=== PATIENT | female | born 1995 | race Caucasian/White ===

== ENCOUNTER → 2022-01-08 08:45 | Outpatient (CLI) | payer BC, SELFPAY ==
--- NOTE | 2022-01-08 08:51 | US_ITS ---
FINAL REPORT CLINICAL HISTORY: ELEVATED LFT S FINDINGS: Sonographic images of the right upper quadrant were obtained. The pancreas is partially obscured. There is fatty infiltration of the liver. The gallbladder is partially collapsed as a nonspecific finding. There is no evidence of biliary ductal dilatation.The common duct measures 3 mm. Limited images of the right kidney are unremarkable. IMPRESSION: Fatty liver. Reviewed, Interpreted and Dictated by Michael Schneider III, MD Transcribed by Hanna Payton Authenticated and [facility]
--- NOTE | 2022-01-08 08:51 | US_ITS ---
FINAL REPORT CLINICAL HISTORY: MENORRHAGIA FINDINGS: Transvaginal sonographic images of the pelvis were obtained. The uterus measures 7.9 x 3.4 x 4.8 cm. The endometrium measures 8 mm. No adnexal mass is identified. The right ovary measures 3.1 x 2.0 x 1.9 cm. The left ovary measures 3.0 x 2.0 x 2.2 cm. Multiple follicles are seen in both ovaries, may represent polycystic ovarian syndrome. IMPRESSION: Bilateral ovarian follicles, may represent polycystic ovarian syndrome. Reviewed, Interpreted and Dictated by Michael Schneider III, MD Transcribed by Hanna Payton Authenticated and [facility]
== END ==
PROVIDERS: PCP Nurse Practitioner Family; Visit Provider Nurse Practitioner Family
DX: N92.0 Excessive and frequent menstruation with regular cycle (principal); R79.89 Other specified abnormal findings of blood chemistry
CPT/HCPCS: 76705; 76830

== ENCOUNTER 2023-09-19 13:04 | Emergency (ER) | payer BC, SELFPAY ==
--- NOTE | 2023-09-19 13:37 | PC.NURSE ---
OB NURSE AT BESIDE CHECKING HEART TONES
[2023-09-19 13:40] VITALS: BP 132/94; PULSE 113; RESP 20; TEMP 36.6; O2SAT 98; BMI 37.5
--- NOTE | 2023-09-19 14:06 | ED_ITS ---
Discharge Plan Disposition Patient Disposition: Home, Self-Care Condition: Good Prescriptions Prescriptions: New amoxicillin 875 mg tablet 875 mg PO BID Qty: 20 0RF prednisone 20 mg tablet 20 mg PO BID Qty: 10 0RF Referrals Follow up/Referrals: Lc Pastrana MD [Primary Care Provider] - See instructions Activity Restrictions/Add. Instructions Additional Instructions/Restrictions: Return to [facility] if worsening symptoms Clinical Impressions Clinical Impression: Sinusitis, Acute dehydration, Instructions Patient Instructions: DI for Sinusitis Discharge ED Provider: Delores Cueto [facility] HPI General Stated complaint: Pain L baptism through L jaw, Bottom BP number low Mode of Arrival: Ambulatory Source of Information: Patient Limitations: No Limitations Time Seen by Provider: 09/19/23 13:50 Description of Symptoms (Recalled from Triage Doc. by RN): PATIENT C/O SEVERE PAIN TO LEFT SIDE OF HEAD THAT RADIATES TO JAW THAT STARTED LAST NIGHT. SHE ALSO STATES HER DIASTOLIC BP HAS BEEN ELEVATED HEENT Symptoms (Recalled from RN notes): Yes Resp Symptoms (Recalled from RN notes): No Skin Symptoms (Recalled from RN notes): No MS Symptoms (Recalled from RN notes): No Functional Status (Recalled from RN notes): WNL History of Present Illness Provider Complaint: Patient had pain in left baptism last night. Got worse, woke her up from sleep around 2 am. Took Tylenol without relief. Pain now radiates into jaw. No rash. Feels like her teeth are sore. Has not had much to drink today. Her blood pressure is high. She is 20 weeks . Has not yet felt the baby move. Onset (ago): day(s) (1) Location: head Relieving factors: none Exacerbating factors: none Associated symptoms: denies other symptoms Treatments prior to arrival: other (Tylenol) Related Data Previous Rx's Medication Instructions Recorded amoxicillin 875 mg tablet 875 mg PO BID #20 tabs 09/19/23 prednisone 20 mg tablet 20 mg PO BID #10 tabs 09/19/23 Allergies Allergy/AdvReac Type Severity Reaction Status Date / Time No Known Allergies Allergy Verified 09/09/18 18:17 Worker's Comp Is this a Worker's Comp case?: No [facility] Disclaimer: The information contained in this section may have been updated after the patient was seen, as this information can be updated by other users. Social History Smoking Status: Never smoker alcohol intake: never current occupational status: other Travel in the last 8 weeks: None ROS Obtained: Yes All systems reviewed & no additional complaints except as documented Constitutional Constitutional: Reports headache(s) ENT Ears, Nose, Mouth, and Throat: Reports headache(s) Neurologic Neurologic: Reports headache(s) Physical Exam General General appearance: alert and in no apparent distress Head Head exam: atraumatic, normocephalic and normal inspection Eye Eye exam: Present normal appearance, PERRL and EOMI ENT ENT exam: Present normal exam, normal oropharynx, mucous membranes moist, TM's normal bilaterally and normal external ear exam Expanded ENT Exam Nose exam: Present sinus tenderness Nasal speculum exam: Bilateral: other (nasal congestion) Neck Neck exam: Present normal inspection, full ROM and trachea midline; Absent meningismus or lymphadenopathy Chest Chest inspection: Present normal inspection and symmetric chest wall rise; Absent tenderness Respiratory Respiratory exam: Present normal lung sounds bilaterally; Absent respiratory distress Cardiovascular Cardiovascular exam: Present regular rate and normal rhythm; Absent JVD Abdominal Exam Abdominal exam: Present soft and normal bowel sounds; Absent distention, tenderness or guarding Extremities Exam Extremities exam: Present normal inspection, full ROM and normal capillary refill; Absent calf tenderness Back Exam Back exam: Present normal inspection; Absent tenderness Neurological Exam Neurological exam: Present alert and oriented X3 Psychiatric Psychiatric exam: Present normal affect and normal mood Skin Skin exam: Present warm, dry, intact and normal color Lymphatic Lymphatic Findings: no adenopathy Medical Decision Making Tin Inquiry Pt receiving controlled substance: No Vital Signs: 09/19/23 13:40 Temperature 97.9 F Temperature Source Oral Pulse Rate [Left Brachial] 113 H Respiratory Rate 20 Blood Pressure [Left Arm] 132/94 H Blood Pressure Mean [Left Arm] 106 Blood Pressure Source [Left Arm] Automatic Cuff Blood Pressure Position [Left Arm] Sitting 02 Sat by Pulse Oximetry 98 Oxygen Delivery Method Room Air Lab Data Lab results reviewed: Yes I reviewed the patient's lab results. Physician Consults Physician Consulted: OB RN came down and checked FHTs Reevaluation(s) Time: 15:47 Reevaluation #1: Fluids almost done. Feeling much better.
[2023-09-19 14:14] LABS: Apearance,Urine Cloudy (Clear); Color,Urine Orange (Yellow); Glucose,Urine (UA) Negative (Negative); PH,Urine 6.5 (5.0-8.5); Protein,Urine Negative (Negative); Specific Gravity, Urine 1.025 (1.005-1.030)
[2023-09-19 14:15] LABS: Bilirubin,Urine 1+ (Negative); Blood, Urine Trace (Negative); Ketones,Urine 15 (Negative); UTC Leukocyte Esterase,Urine Negative (Negative); UTC Nitrate,Urine Negative (Negative); Urobilinogen,Urine 0.2 EU/dl (0.2)
[2023-09-19] MEDS: 0.9 % SODIUM CHLORIDE 1000ML 1,000 ML 999 ML IV (14:30)
--- NOTE | 2023-09-19 15:16 | PC.NURSE ---
CHECKED ON PATIENT. PATIENT STATES SHE IS OK, REQUESTING A SNACK. PATIENT GIVEN JUAN A CRACKERS AND WATER
[2023-09-19 15:51] VITALS: BP 132/94; PULSE 113; RESP 20; TEMP 36.6; O2SAT 98
== END 2023-09-19 16:00 | disposition home or self-care (01) ==
PROVIDERS: Emergency Provider Physician Assistant; PCP Family Medicine
DX: O26.892 Other specified pregnancy related conditions, second trimester (principal); E86.0 Dehydration; J01.90 Acute sinusitis, unspecified; R51.9 Headache, unspecified; R68.84 Jaw pain; R09.81 Nasal congestion; Z3A.20 20 weeks gestation of pregnancy
CPT/HCPCS: 81003; 96360; 99204; 99212; G0463

== ENCOUNTER 2023-11-14 11:55 | Emergency (ER) | payer BC, SELFPAY ==
[2023-11-14 12:00] VITALS: BP 139/93; PULSE 116; RESP 18; TEMP 36.7; O2SAT 99; BMI 38.0
--- NOTE | 2023-11-14 12:11 | ED_ITS ---
Discharge Plan Disposition Patient Disposition: Home, Self-Care Condition: Good Prescriptions Prescriptions: New ondansetron 8 mg tablet,disintegrating 8 mg PO TID PRN (Reason: Nausea) Qty: 30 0RF No Action levothyroxine 75 mcg tablet 75 mcg PO DAILY Patient Comments: TAKE 1 TABLET BY MOUTH ONCE DAILY Referrals Follow up/Referrals: Lc Pastrana MD [Primary Care Provider] - See instructions Clinical Impressions Clinical Impression: COVID-19, 28 weeks gestation of Instructions Patient Instructions: DI for COVID-19 (Suspected or Confirmed ) Discharge ED Provider: Delores Cueto [facility] [place] HPI General Stated complaint: body aches, nausea, headache, dehydration Time Seen by Provider: 11/14/23 12:17 History of Present Illness Provider Complaint: Patient woke up this am with body aches, headache, chills. She has nausea. She has not had good oral intake today. No edema. She is 28 weeks . Onset (ago): day(s) (1) Relieving factors: none Exacerbating factors: none Associated symptoms: fever/chills, headaches and nausea/vomiting Treatments prior to arrival: none Related Data Home Medications Medication Instructions Recorded Confirmed levothyroxine 75 mcg tablet 75 mcg PO DAILY 11/14/23 11/14/23 Previous Rx's Medication Instructions Recorded ondansetron 8 mg disintegrating 8 mg PO TID PRN Nausea #30 tabs 11/14/23 tablet Allergies Allergy/AdvReac Type Severity Reaction Status Date / Time No Known Allergies Allergy Verified 11/14/23 12:16 [facility] Disclaimer: The information contained in this section may have been updated after the patient was seen, as this information can be updated by other users. Social History Smoking Status: Never smoker alcohol intake: never current occupational status: other Travel in the last 8 weeks: None ROS Obtained: Yes All systems reviewed & no additional complaints except as documented Constitutional Constitutional: Reports body ache, Reports chills, Reports headache(s) and Reports poor appetite ENT Ears, Nose, Mouth, and Throat: Reports headache(s) Gastrointestinal Gastrointestingal: Reports nausea Musculoskeletal Musculoskeletal: Reports arthralgias Neurologic Neurologic: Reports headache(s) Physical Exam General General appearance: alert and in no apparent distress Head Head exam: atraumatic, normocephalic and normal inspection Eye Eye exam: Present normal appearance, PERRL and EOMI ENT ENT exam: Present normal exam, normal oropharynx, mucous membranes moist, TM's normal bilaterally and normal external ear exam Expanded ENT Exam Nose exam: Present sinus tenderness Nasal speculum exam: Bilateral: other (nasal congestion) Neck Neck exam: Present normal inspection, full ROM and trachea midline; Absent meningismus or lymphadenopathy Chest Chest inspection: Present normal inspection and symmetric chest wall rise; Absent tenderness Respiratory Respiratory exam: Present normal lung sounds bilaterally; Absent respiratory distress Cardiovascular Cardiovascular exam: Present regular rate and normal rhythm; Absent JVD Abdominal Exam Abdominal exam: Present soft and normal bowel sounds; Absent distention, tenderness or guarding Extremities Exam Extremities exam: Present normal inspection, full ROM and normal capillary refill; Absent calf tenderness Back Exam Back exam: Present normal inspection; Absent tenderness Neurological Exam Neurological exam: Present alert and oriented X3 Psychiatric Psychiatric exam: Present normal affect and normal mood Skin Skin exam: Present warm, dry, intact and normal color Lymphatic Lymphatic Findings: no adenopathy Medical Decision Making Tin Inquiry Pt receiving controlled substance: No Lab Data Lab results reviewed: Yes I reviewed the patient's lab results.
[2023-11-14 12:24] LABS: Influenza A, PCR Not Detected (NotDetected); Influenza B, PCR Not Detected (NotDetected)
[2023-11-14 12:29] LABS: UTC Strep Screen (Rapid) Negative (Negative)
[2023-11-14] MEDS: 0.9 % SODIUM CHLORIDE 1000ML 500 ML 999 ML IV (12:36)
[2023-11-14 13:02] LABS: Coronavirus 19, PCR Detected (NotDetected)
[2023-11-14 14:10] LABS: Apearance,Urine Cloudy (Clear); Color,Urine Dark Yellow (Yellow)
[2023-11-14 14:11] LABS: Bilirubin,Urine Negative (Negative); Blood, Urine Trace (Negative); Glucose,Urine (UA) M (Negative); Ketones,Urine 1+ (Negative); Protein,Urine Negative (Negative); Specific Gravity, Urine 1.015 (1.005-1.030); UTC Leukocyte Esterase,Urine Negative (Negative); UTC Nitrate,Urine Negative (Negative); Urobilinogen,Urine 0.2 EU/dl (0.2)
[2023-11-14 14:17] VITALS: BP 139/93; PULSE 116; RESP 18; TEMP 36.7; O2SAT 99
== END 2023-11-14 14:17 | disposition home or self-care (01) ==
PROVIDERS: Emergency Provider Physician Assistant; PCP Family Medicine
DX: O98.513 Other viral diseases complicating pregnancy, third trimester (principal); U07.1 COVID-19; Z3A.28 28 weeks gestation of pregnancy; R51.9 Headache, unspecified; R68.83 Chills (without fever); M79.18 Myalgia, other site; R11.0 Nausea
CPT/HCPCS: 81003; 87636; 87880; 99212; 99214; G0463

== ENCOUNTER 2024-05-17 08:29 | Outpatient (CLI) | payer BC, SELFPAY ==
--- NOTE | 2024-05-17 08:36 | US_ITS ---
FINAL REPORT TECHNIQUE: Multiple transverse and longitudinal images CLINICAL HISTORY: ELEVATED LIVER ENZYMES COMPARISON: None FINDINGS: The gallbladder shows no wall thickening, distention or stone disease. No biliary ductal dilatation is appreciated. No fluid collections are seen. There is mild fatty infiltration of the liver. Limited portions of the right kidney are unremarkable. IMPRESSION: No evidence of cholelithiasis or biliary obstruction. Mild fatty infiltration of the liver. Reviewed, Interpreted and Dictated by Eulalia Landeros MD Transcribed by Jillian De La Vega Authenticated and [facility]
== END 2024-05-17 23:59 | disposition home or self-care (01) ==
LOC: RAD 08:31
PROVIDERS: PCP Family Medicine; Visit Provider Internal Medicine Adolescent Medicine
DX: R74.8 Abnormal levels of other serum enzymes (principal)
CPT/HCPCS: 76705

== ENCOUNTER 2025-02-08 20:59 | Emergency (ER) | payer BC, SELFPAY ==
--- NOTE | 2025-02-08 21:10 | ED_ITS ---
Discharge Plan Disposition Patient Disposition: Home, Self-Care Condition: Good Prescriptions Prescriptions: No Action levothyroxine 75 mcg tablet 75 mcg PO DAILY Patient Comments: TAKE 1 TABLET BY MOUTH ONCE DAILY ondansetron 8 mg tablet,disintegrating 8 mg PO TID PRN (Reason: Nausea) Qty: 30 0RF Referrals Follow up/Referrals: Daniel Chowdhury MD [Primary Care Provider, Internal Medicine] - See instructions Activity Restrictions/Add. Instructions Additional Instructions/Restrictions: Follow-up with your primary care provider. Return to the emergency department for any acute or worsening symptoms or return of your symptoms. Clinical Impressions Clinical Impression: Slurred speech Print Language Print Language: Faroese Discharge ED Provider: Kristal Joe General Adult HPI General Chief complaint: Dizziness Stated complaint: slurred speech,lightheaded,dizziness,loss balance Time Seen by Provider: 02/08/25 21:09 History of Present Illness HPI narrative: Patient is an otherwise healthy 29-year-old female who presented to the emergency department with multiple complaints. Per , patient was feeding the baby around 8 PM when he noticed that her speech sounded abnormal. She said that she felt like she was seeing things. Patient denies any other vision changes. Patient denies any chest pain shortness of breath abdominal pain nausea vomiting diarrhea. Patient states that she has not been sick recently. Patient states that she has been on medication for IVF but denies any other medications. Patient has not had a headache. Patient and her at bedside states that her symptoms have since resolved. Related Data Home Medications ?Medication ?Instructions ?Recorded ?Confirmed levothyroxine 75 mcg tablet 75 mcg PO DAILY 11/14/23 0 11/14/23 Previous Rx's ?Medication ?Instructions ?Recorded ondansetron 8 mg disintegrating 8 mg PO TID PRN Nausea #30 tabs 11/14/23 tablet Allergies Allergy/AdvReac Type Severity Reaction Status Date / Time No Known Allergies Allergy Verified 11/14/23 12:16 [facility] Disclaimer: The information contained in this section may have been updated after the patient was seen, as this information can be updated by other users. Social History Smoking Status: Never smoker alcohol intake: never current occupational status: other Travel in the last 8 weeks?: None Have you lived/traveled outside US in past 30 days?: No Contact w/someone who lives/traveled outside US past 30 days?: No Exposure to someone with infectious disease in past 14 days?: No Do you have a fever (greater than 100.4 F or 38 C)?: No Have you tested positive for COVID-19?: No Exposed to someone with COVID-19 in past 14 days?: No Do you have a sore throat?: No Do you have a cough?: No Do you have any weakness?: No Do you have any diarrhea?: No Are you experiencing any unusual bleeding?: No Do you have any muscle aches/pain?: No Do you have any abdominal pain?: No Are you experiencing loss of taste or smell?: No ROS Obtained: Yes All systems reviewed & no additional complaints except as documented and Yes Systems reviewed as appropriate & no additional complaints except as documented Physical Exam General General appearance: alert and in no apparent distress Head Head exam: atraumatic, normocephalic and normal inspection Eye Eye exam: Present normal appearance, PERRL and EOMI; Absent scleral icterus ENT ENT exam: Present normal exam and normal external ear exam Neck Neck exam: Present normal inspection and full ROM Chest Chest inspection: Present normal inspection and symmetric chest wall rise Respiratory Respiratory exam: Present normal lung sounds bilaterally; Absent respiratory distress or wheezes Cardiovascular Cardiovascular exam: Present regular rate, normal rhythm and normal heart sounds Abdominal Exam Abdominal exam: Present soft and distention; Absent tenderness, guarding or rebound Extremities Exam Extremities exam: Present normal inspection and full ROM Back Exam Back exam: Present normal inspection and full ROM Neurological Exam Neurological exam: Present alert, oriented X3, CN II-XII intact, normal gait and motor sensory deficit Psychiatric Psychiatric exam: Present normal affect and normal mood Skin Skin exam: Present warm and dry Medical Decision Making Medical Records Medical records reviewed: Yes I reviewed the patient's medical records. Screening: Per USPSTF and CDC recommendations, given the prevalence of disease in our region, it is our hospital?s policy to screen for HIV and viral Hepatitis for all patients aged 18 and over and those with ongoing risk factors. Tin Inquiry Pt receiving controlled substance: No Vital Signs: 02/08/25 21:12 02/08/25 21:12 02/08/25 21:29 Pulse Rate 79 78 Pulse Rate [Right Radial] 82 Respiratory Rate 20 Blood Pressure 130/95 H 129/90 Blood Pressure [Right Arm] 130/95 H Blood Pressure Mean Blood Pressure Mean [Right Arm] 106 Blood Pressure Source [Right Arm] Automatic Cuff 02 Sat by Pulse Oximetry 95 99 99 Oxygen Delivery Method Room Air 02/08/25 22:30 Pulse Rate 80 Pulse Rate [Right Radial] Respiratory Rate Blood Pressure 136/86 Blood Pressure [Right Arm] Blood Pressure Mean 97 Blood Pressure Mean [Right Arm] Blood Pressure Source [Right Arm] 02 Sat by Pulse Oximetry 99 Oxygen Delivery Method Lab Data Lab results reviewed: Yes I reviewed the patient's lab results. Lab Results 02/08/25 21:03: Urine Color Yellow, Urine Appearance Clear, Urine pH 7.0, Ur Specific [place] 1.020, Urine Protein Negative, Urine Glucose (UA) Negative, Urine Ketones Negative, Urine Blood Trace-i, Urine Nitrate Negative, Urine Bilirubin Negative, Urine Urobilinogen 1.0, Ur Leukocyte Esterase Negative, Urine RBC Occasional, Urine WBC Occasional, Ur Squamous Epith Cells 5-10, Urine Bacteria Trace, Urine HCG, Qual Negative, Urine Opiates Screen Negative, Urine Methadone Screen Negative, Ur Barbituates Screen Negative, Ur Phencyclidine Scrn Negative, Ur Amphetamines Screen Negative, U Benzodiazepines Scrn Negative, Urine Cocaine Screen Negative, U Marijuana (THC) Screen Negative 02/08/25 21:15: WBC 10.1, RBC 5.06, Hgb 14.1, Hct 39.7, MCV 78.5 L, MCH 27.9, M CHC 35.5 H, RDW 13.4, Plt Count 365, MPV 10.7 H, Neut % (Auto) 52.0, Lymph % (Auto) 36.8, [place] % (Auto) 7.2, Eos % (Auto) 2.9, Baso % (Auto) 0.7, Neut # (Auto) 5.3, Lymph # (Auto) 3.7, [place] # (Auto) 0.7, Eos # (Auto) 0.3, Baso # (Auto) 0.1, Sodium 140, Potassium 4.0, Chloride 104, Carbon Dioxide 26, Anion Gap 14.0, BUN 13, Creatinine 0.60, Estimated Creat Clear 195, Estimated GFR 117, Est GFR ( Amer) 141, Glucose 97, Calcium 9.3, Magnesium 1.8, Total Bilirubin 1.9 H, AST 64 H, ALT 53, Alkaline Phosphatase 98, Troponin I < 0.01, Total Protein 7.6, Albumin 4.4, Globulin 3.2, Albumin/Globulin Ratio 1.4, Serum HCG, Qual Negative, Plasma/Serum Alcohol < 10 02/08/25 21:50: POC Glucose 108 02/08/25 21:15 02/08/25 21:15 Orders (Tests/Meds): ORDERS Category Date Time Status CT head/brain wo con Stat Cat Scan 02/08/25 21:39 Completed CBC w/Auto Diff [Complete Blood Count Auto Diff] Stat Lab 02/08/25 21:15 Completed CMP [Comprehensive Metabolic Panel] Stat Lab 02/08/25 21:15 Completed Drug Screen,Urine Stat Lab 02/08/25 21:03 Completed Ethyl Alcohol Stat Lab 02/08/25 21:15 Completed HCG Qualitative, Serum Stat Lab 02/08/25 21:15 Completed MAG [Magnesium] Stat Lab 02/08/25 21:15 Completed POC Glucose,Bedside Routine Lab 02/08/25 21:50 Completed POC Glucose,Bedside Stat Lab 02/08/25 21:41 Ordered Trop I [Troponin I] Stat Lab 02/08/25 21:15 Completed Troponin I Q3H Lab 02/09/25 00:45 Ordered Troponin I Q3H Lab 02/09/25 03:45 Ordered UA [Urinalysis and Microscopic] Stat Lab 02/08/25 21:03 Completed Urine , HCG Qual. Stat Lab 02/08/25 21:03 Completed Medical Decision Narrative: Patient is a an otherwise healthy 29-year-old female who is on a occasion for IVF but denies any other medications who presents to the emergency department with an episode of slurred speech that resolved prior to arrival. On arrival, patient was hemodynamically stable with unremarkable vital signs. Differential includes but not limited to: hypoglycemia, TIA, cranial hemorrhage versus mass, electrolyte abnormalities, urinary tract infection, amongst others. Patient's labs were reviewed and interpreted by myself: CBC showed no leukocytosis, hemoglobin was stable. CMP was unremarkable. Initial troponin was less than 0.01. test was negative. UA showed no evidence of infection. Urine drug screen was negative. Alcohol level was normal. CT head was reviewed and interpreted by myself and showed no acute pathology. At this time, patient was at her baseline therefore I felt the patient was appropriate for discharge home with plan to follow-up outpatient with her primary care provider. Critical Care Critical Care Time Critical Care Time: No
--- NOTE | 2025-02-08 21:10 | ECG_ITS ---
APPROVED REPORT Exam: Resting ECG HR:82 bpm ECG Measurements Heart Rate 82 AXES WY 171 P 51 QRSd 94 QRS 3 QT 357 T 25 QTc 396 Conclusion SINUS RHYTHM NORMAL ECG UNCONFIRMED REPORT Electronically signed by : LEVON BARNETT, 02/10/2025 00:41:42
--- OUTSIDE RECORDS SUMMARY | 2025-02-08 21:10 | XMS_ITS | Clinical Summary ---
Author Organization [facility] Address [address] [place] [address] Care Team Providers Care Enlisted Advisor Name Role Phone Provider, No Known Primary Care Provider Unavail able Allergies No known active allergies Medications levothyroxine (Synthroid) 75 MCG tablet Take 1 tablet by mouth Daily. 30 tablet 10 07/10/2023 Active labetalol (NORMODYNE) 200 MG tablet Take 1 tablet by mouth Every 8 (Eight) Hours. 90 tablet 01/17/2024 11:20 AM EDT 01/17/2024 Active NIFEdipine CC (ADALAT CC) 30 MG 24 hr tablet Take 1 tablet by mouth 2 (Two) Times a Day. 60 tablet 01/17/2024 11:20 AM EDT 01/17/2024 Active Active Problems Problem Noted Date Diagnosed Date 01/13/2024 Hypothyroidism (acquired) 12/18/2023 Overview (12/18/2023): On Synthroid 75 mcg daily. Gestational hypertension wit hout significant proteinuria in third trimester 12/05/2023 Overview (12/18/2023): 12/15/2023 labetalol 100 mg 3 times daily. Induction of labor scheduled at 37 weeks. Twice weekly monitoring and blood pressure checks. Supervision of normal first , antepartu m 08/04/2023 Oligomenorrhea 09/26/2020 Overview (09/26/2020): Only has 2 periods a year, wants to get Family planning 09/26/2020 Overview (09/26/2020): Options Metformin followed by Clomid Clomid first Annual physical exam 09/26/2020 Pap test, as part of [facility] 09/26/2020 Immunizations Immunization Administration Dates Next Due Tdap 11/10/2023 Family History Medical History Relation Name Comments Breast cancer Maternal Grandfather great grandfather Hypertension Mother Colon cancer Neg Hx Ovarian cancer Neg Hx Uterine cancer Neg Hx Relation Name Status Comments Maternal Grandfather great grandfather Mother Social History Tobacco Use Types Packs/Day Years Used Date Smoking Tobacco: Never Passive Smoke Exposure: Never Smokeless Tobacco: Never Alcohol Use Standard Drinks/Week Comments Not Currently 1 (1 standard drink = 0.6 oz pur e alcohol) occassional [facility] Utilities Answer Date Recorded In the past 12 months has th e electric, gas, oil, or water company threatened to shut off services in your home? No 01/13/2024 AUDIT-C Answer Date Recorded Q1: How often do you have a drink containing alc ohol? Monthly or less 01/13/2024 Q2: How many drinks containi ng alcohol do you have on a typical day when you are drinking? 1 or 2 01/13/2024 Q3: How often do you have si x or more drinks on one occasion? Never 01/13/2024 Overall Financial Resource Strain (CARDIA) Answe r Date Recorded How hard is it for you to pa y for the very basics like food, housing, medical care, and heating? Not hard at all 01/13/2024 [facility] [place] [facility] - Occupational Stress Questionnaire Answer Date Recorded Do you feel stress - tense, restless, nervous, or anxious, or unable to sleep at night because your mind is troubled all the time - these days? Not at all 01/13/2024 Exercise Vital Sign Answer Date Recorde d On average, how many days pe r week do you engage in moderate to strenuous exercise (like a brisk walk)? 2 days 01/13/2024 On average, how many minutes do you engage in exercise at this level? 30 min 01/13/2024 Hunger Vital Sign Answer Date Recorded Within the past 12 months, y ou worried that your food would run out before you got the money to buy more. Never true 08/13/20 24 Within the past 12 months, t he food you bought just didn't last and you didn't have money to get more. Never true 01/13/2024 PRAPARE - Transportation Answer Date Re corded In the past 12 months, has l ack of transportation kept you from medical appointments or from getting medications? No 12/31 In the past 12 months, has l ack of transportation kept you from meetings, work, or from getting things needed for daily living? No 01/13/2024 Baltic Depression Scale Answer Date Recorded Retired Baltic Depression Score 1 02/16/2024 Retired EPD Scale: Thought of Harming Self Unrec ognized value 02/16/2024 Abuse Screen Answer Date Recorded Feels Unsafe at Home or Work/School no 01/13/2024 Feels Threatened by Someone no 12/31 Does Anyone Try to Keep You From Having Contact with Others or Doing Things Outside Your Home? no 01/13/2024 Physical Signs of Abuse Present no 01/13/2024 Housing Stability Answer Date Recorded Current Living Arrangements home 12/31 Potentially Unsafe Housing Conditions none 01/13/2024 Family and Community Support Answer Neo e Recorded If for any reason you need h elp with day-to-day activities such as bathing, preparing meals, shopping, managing finances, etc., do you get the help you need? I don't need any help 01/13/2024 How often do you feel lonely or isolated from those around you? Never 01/13/2024 Employment Answer Date Recorded Do you want help finding or keeping work or a job? I do not need or want help 01/13/2024 Disabilities Answer Date Recorded Difficulty Concentrating, Remembering or Making Decisions no 01/13/2024 Difficulty Managing Errands Independently no 01/13/2024 Education Answer Date Recorded Do you want help with school or training? For example, starting or completing job training or getting a high school diploma, GED or equivalent No 01/13/2024 Preferred Language Sinhala 01/13/2024 PHQ-2 Answer Date Recorded Retired PHQ-9: Brief Depression Severity Measure Score 0 01/13/2024 Education Answer Date Recorded What is the highest level of school you have completed or the highest degree you have received? High school graduate 12/05/2023 Comments No Sex and Gender Information Value Date Recorded Sex Assigned at Not on file Legal Sex Female 1:27 PM EDT Gender Identity Not on file Sexual Orientation Not on file Last Filed Vital Signs Vital Sign Reading Time Taken Comments Blood Pressure 122/86 02/16/2024 8:38 AM EDT Pulse 82 01/17/2024 11:45 AM EDT Temperature 36.7 C (98.1 F) 01/17/2024 11:45 AM EDT Respiratory Rate 18 02/16/2024 8:38 AM EDT Oxygen Saturation 97% 01/17/2024 11:45 AM EDT Inhaled Oxygen Concentration - - Weight 89.8 kg (198 lb) 02/16/2024 8:38 AM EDT Height 160 cm (5' 2.99 ) 02/16/2024 8:38 AM EDT Body Mass Index 35.08 02/16/2024 8:38 AM EDT Plan of Treatment Health Maintenance Due Date Last Done Comments ANNUAL PHYSICAL 09/26/2020 Annual Gynecologic Pelvic an d Breast Exam 09/27/2021 09/26/2020 COVID-19 Vaccine ( - 2023-2 5 season) 2025 INFLUENZA VACCINE 03/02/2025 PAP SMEAR 02/15/2027 02/16/2024, 09/26/2020 TDAP/TD VACCINES (2 - Td or Tdap) 11/09/2033 11/10/2023 HEPATITIS C SCREENING Completed 07/07/2023 Pneumococcal Vaccine 0-49 Aged Out No longer eligible based on patient's age to complete this topic Procedures Procedure Name Priority Date/Time Associated Diagnosis Comments LIQUID-BASED PAP SMEAR WITH HPV GENOTYPING REGARDLESS OF INTERPRETATION, [facility] ([facility]) Routine 02/16/2024 12:03 PM EDT care following delivery OBSTETRIC PANEL Routine 07/07/2023 10:25 AM EST SCANNED - PAP SMEAR 09/26/2020 from Last 3 Months or Most Recently Relevant to Health Maintenance Results * LIQUID-BASED PAP SMEAR WITH HPV GENOTYPING REGARDLESS OF INTERPRETATION ([facility]) (02/16/2024 12:03 PM EDT) Reference Lab Report [facility] [address] [place] [address] or [phone] Camilo Solano M.D., [employer] PATIENT NAME LABORATORY NO. CANDI DAY. [id number] AGE SEX SSN CLIENT REF # [facility] 30 1995 F [id number] [facility] RENETTA LYNN REQUESTING Santiago [place] [address] JACINTA LALA DATE COLLECTED DATE RECEIVED DATE REPORTED 02/16/2024 02/16/2024 02/21/2024 ThinPrep Pap with Cytyc Imaging DIAGNOSIS: Negative for intraepithelial lesion or malignancy Multiple factors can influence accuracy of Pap tests; therefore, screening at regular intervals is necessary for early cancer detection. SPECIMEN ADEQUACY: SATISFACTORY FOR EVALUATION Transformation zone is present. SOURCE OF SPECIMEN: CERVICAL/ENDOCERV ICAL SLIDES: 1 CLINICAL HISTORY: care following delivery HPV HR-HPV POOL: Negative The Aptima HPV assay is an in vitro nucleic acid amplification test for the qualitative detection of E6/E7 viral messenger RNA from 14 high risk types of HPV in cervical specimens. The high risk HPV types detected include: 16, 18, 31, 33, 35, 39, 45, 51, 52, 56, 58, 59, 66, 68 GRAPHICS ARTIST: [facility]LIN [facility] (ASCP) CPT CODES: 34121, 58918 02/21/2024 9:40 AM EDT [facility] ThinPrep Vial Cervix uteri structure / Unknown Collection / Unknown 02/16/2024 12:03 PM EDT 02/16/2024 12:03 PM EDT Jacinta Lala MD PATHOLOGY/CYTOLOGY ORDER JUANITA Final Result [facility]
[address] [place] [address], * Obstetric Panel (07/07/2023 10:25 AM EST) Hepatitis B Surface Ag Negative Negative [facility] Hep C Virus Ab Non Reactive Non Reactive [facility] Comment: HCV antibody alone does not differentiate between previously resolved infection and active infection. Equivocal and Reactive HCV antibody results should be followed up with an HCV RNA test to support the diagnosis of active HCV infection. RPR Non Reactive Non Reactive [facility] Rubella Antibodies, IgG 4.69 Immune >0.99 index [facility] Comment: Non-immune <0.90 Equivocal 0.90 - 0.99 Immune >0.99 ABO Type O [facility] Rh Factor Positive [facility] Comment: Please note: Prior records for this patient's ABO / Rh type are not available for additional verification. Antibody Screen Negative Negative [facility] WBC 9.7 3.4 - 10.8 x10E3/uL [facility] RBC 4.55 3.77 - 5.28 x10E6/uL [facility] Hemoglobin 13.5 11.1 - 15.9 g/dL [facility] Hematocrit 37.8 34.0 - 46.6 % [facility] MCV 83 79 - 97 fL [facility] MCH 29.7 26.6 - 33.0 pg [facility] MCHC 35.7 31.5 - 35.7 g/dL [facility] RDW 13.8 11.7 - 15.4 % [facility] Platelets 353 150 - 450 x10E3/uL [facility] Neutrophil Rel % 67 Not Estab. % [facility] Lymphocyte Rel % 24 Not Estab. % [facility] Monocyte Rel % 6 Not Estab. % [facility] Eosinophil Rel % 1 Not Estab. % [facility] Basophil Rel % 1 Not Estab. % [facility] Neutrophils Absolute 6.6 1.4 - 7.0 x10E3/uL [facility] Lymphocytes Absolute 2.3 0.7 - 3.1 x10E3/uL [facility] Monocytes Absolute 0.6 0.1 - 0.9 x10E3/uL [facility] Eosinophils Absolute 0.1 0.0 - 0.4 x10E3/uL [facility] Basophils Absolute 0.1 0.0 - 0.2 x10E3/uL [facility] Immature Granulocyte Rel % 1 Not Estab. % [facility] Immature Grans Absolute 0.1 0.0 - 0.1 x10E3/uL [facility] 07/07/2023 10:2 5 AM EST 07/07/2023 Narrative [facility] - 07/08/2023 10:11 AM EST Performed at: 01 - [facility] [address] [place], [place] [id number] Brush Operator: Daquan Cotter PhD, Phone: [phone] Patient Fasting: N Jacinta Lala MD LAB BLOOD ORDERABLES Fin al Result [facility] [address] [place] [address], [facility] [address] [place] [address], * SCANNED - PAP SMEAR (09/26/2020) Magen Medina MD CHART REVIEW TABS Final Result from Last 3 Months or Most Recently Relevant to Health Maintenance Insurance PPO Advance Directives * CPR (Attempt to Resuscitate) (Latest Code Status on File) Date Activated Date Inactivated Comments 01/14/2024 11:57 PM 01/17/2024 5:23 PM Question Answer Comments Code Status (Patient has no pulse and is not breathing): CPR (Attempt to Resuscitate) Medical Interventions (Patie nt has pulse or is breathing): Full * CPR (Attempt to Resuscitate) Date Activated Date Inactivated Comments 01/14/2024 7:27 PM 01/14/2024 11:57 PM Question Answer Comments Code Status (Patient has no pulse and is not breathing): CPR (Attempt to Resuscitate) Medical Interventions (Patie nt has pulse or is breathing): Full Support Level Of Support Discussed With: Patient * CPR (Attempt to Resuscitate) Date Activated Date Inactivated Comments 01/13/2024 8:35 PM 01/14/2024 7:27 PM Question Answer Comments Code Status (Patient has no pulse and is not breathing): CPR (Attempt to Resuscitate) Medical Interventions (Patie nt has pulse or is breathing): Full Support Level Of Support Discussed With: Patient Care Teams Enlisted Advisor Relationship Specialty Start Date End Date Provider, [place] [address] PCP - General 09/25/20
--- OUTSIDE RECORDS SUMMARY | 2025-02-08 21:10 | XMS_ITS | Patient Health Record ---
Author Organization [facility] Address [address] [place] [address] Care Team Providers Care Filler Shredder Name Role Phone Edyta Chang Unavailable [phone] Allergies No Known Allergies Reason For Referral No Information Medications Medication SIG (Take, Route, Frequency, Duration) Notes Start Date End Date Status ZyrTEC Active Synthroid Active Provera 10 mg Tablet 1 tablet Orally Onc e a day; Duration: 10 days Active metFORMIN HCl ER 750 MG Tablet Extended Release 24 Hour 2 tablets Orally Once a day; Duration: 90 days Active Letrozole 2.5 MG Tablet TAKE 3 TABLETS B Y MOUTH ONCE DAILY FOR 5 DAYS; Duration: 15 Active Social History Tobacco Use: Social History Observation Description Date Details (start date - stop date) Never Smoker NA - NA Sex Assigned At : Social History Observation Description Sex Assigned At Female Social History Drugs/Alcohol: Social Info Question Answer Notes Drugs Have you used drugs other than those for medical reasons in the past 12 months? No Steroid Use Have you used anabolic (body building) st eroids? No Alcohol Screen Did you have a drink containing alcohol in the past year? No Points 0 Interpretation Negative Tobacco Use: Social Info Question Answer Notes Tobacco Use/Smoking Are you a nonsmoker Additional Findings: Tobacco Non-User Current no n-smoker Additional Details Category Social Info Options Details Miscellaneous: Domestic violence: No Section Notes: Do you now or have you ever smoked or used tobacco products?: No Have you ever used any recreational drugs?: No Have you had a drink containing alcohol in the last year?: Yes How often did you have a drink containing alcohol in the last year?: 2-4 times per month Problems Problem Type SNOMED Code ICD Code Onset Dates Problem Status W/U Status Risk Notes Problem Polycystic ovary syndrome (disorder) (950206859) PCOS (polycystic ovarian syndrome) (E28.2) Active confirmed Problem Female infertility (1220615) Infertility (N97.9) Active confirmed Plan Of Treatment No Information Insurance Providers Payer Name Payer Address Payer Phone Subscriber Number Group Number Insured Name Patient Relationship to Insured Coverage Start Date Coverage End Date [employer] PPO [address] [place] [address] [id number] Ruddy Leyva Spouse - patient is the spouse of the insured Medical (General) History Medical History History ICD Code PCOS Surgical History Surgery Date(Month/Year) denies
[2025-02-08 21:12] VITALS: BP 130/95; PULSE 79; PULSE 82; RESP 20; O2SAT 95; O2SAT 99; BMI 33.3
[2025-02-08 21:29] VITALS: BP 129/90; PULSE 78; O2SAT 99
--- NOTE | 2025-02-08 21:39 | CT_ITS ---
PROCEDURE INFORMATION: Exam: CT Head Without Contrast Exam date and time: 02/08/2025 10:05 PM Age: 29 years old Clinical indication: Altered mental status/memory loss; Additional info: AMS TECHNIQUE: Imaging protocol: Computed tomography of the head without contrast. Radiation optimization: All CT scans at this facility use at least one of these dose optimization techniques: automated exposure control; mA and/or kV adjustment per patient size (includes targeted exams where dose is matched to clinical indication); or iterative reconstruction. COMPARISON: No relevant prior studies available. FINDINGS: Brain: No hemorrhage. No mass effect. Cerebral ventricles: No ventriculomegaly. Paranasal sinuses: No fluid levels. Mastoid air cells: Visualized mastoid air cells are well aerated. Bones: No acute fracture. Soft tissues: The visualized soft tissue is grossly unremarkable. IMPRESSION: No evidence of acute intracranial hemorrhage.
[2025-02-08 21:43] LABS: Microscopic, Urine URINE MICROSCOPIC (MICROSCOPIC)
[2025-02-08 21:47] LABS: Hematocrit 39.7 % (37.0-47.0); Hemoglobin 14.1 g/dL (12.2-16.2); Immature Granulocytes % 0.4 %; Mean Corpuscular HGB Conc 35.5 g/dL (31.8-35.4); Mean Corpuscular Hemoglobin 27.9 pg (27.0-31.2); Mean Corpuscular Volume 78.5 fl (81-99); Nucleated Red Blood Cells % 0 %; Platelet Count 365 K/mm3 (142-424); Red Blood Count 5.06 M/mm3 (4.20-5.40); Red Cell Distribution Width-SD 37.4 fL; White Blood Count 10.1 K/mm3 (4.8-10.8)
[2025-02-08 21:52] LABS: Bilirubin,Urine Negative (Negative); Color,Urine YELLOW (Yellow); Glucose,Urine (UA) Negative (Negative); Ketones,Urine Negative (Negative); Leukocyte Esterase,Urine Negative (Negative); PH,Urine 7.0 (5.0-8.5); Protein,Urine Negative (Negative); Specific Gravity, Urine 1.020 (1.005-1.030); Urobilinogen,Urine 1.0 EU/dl (0.2)
--- NOTE | 2025-02-08 21:52 | PC.NURSE ---
BGL 108
[2025-02-08 21:53] LABS: Urine Pregnancy, HCG Qual. Negative (Negative)
[2025-02-08 21:54] LABS: Albumin Level 4.4 g/dl (3.5-5.0); Chloride 104 mmol/L (98-107); HCG Qualitative, Serum Negative (Negative); Potassium 4.0 mmoL/L (3.5-5.1); Sodium 140 mmol/L (136-145)
[2025-02-08 21:56] LABS: Alanine Aminotransferase 53 U/L (12-78); Alkaline Phosphatase 98 U/L (38-126); Anion Gap 14.0 mEq/L (5-15); Aspartate Amino Transferase 64 U/L (14-36); Bilirubin,Total 1.9 mg/dl (0.2-1.3); Blood Urea Nitrogen 13 mg/dl (7-17); Carbon Dioxide 26 mmol/L (22.0-30.0); Creatinine Clearance Estimated 195 mL/min (50-200); Creatinine,Serum 0.60 mg/dl (0.52-1.04); Estimated Glomerular Filt Rate 117 ml/min (>60); GFR (African American) 141 ML/MIN (>60)
[2025-02-08 21:57] LABS: POC Glucose,Bedside 108 gm/dL (70-110)
[2025-02-08 21:57] LABS: Albumin/Globulin Ratio 1.4 (1.1-1.8); Calcium 9.3 mg/dl (8.4-10.2); Globulin 3.2 g/dL (1.3-3.2); Glucose 97 mg/dl (74-100); Magnesium 1.8 mg/dl (1.6-2.3); Total Protein,Serum 7.6 g/dl (6.3-8.2)
[2025-02-08 22:01] LABS: Bacteria,Urine Trace /lpf; RBC,Urine Occasional #/hpf (0-3); WBC,Urine Occasional #/hpf (0-3)
[2025-02-08 22:06] LABS: Benzodiazepines Screen,Urine Negative ng/ml (<200)
[2025-02-08 22:07] LABS: Amphetamine/Metha Screen,Urine Negative ng/ml (<1000)
[2025-02-08 22:08] LABS: Barbiturates Screen,Urine Negative ng/ml (<200); Methadone Screen,Urine Negative ng/ml (<300)
[2025-02-08 22:09] LABS: Troponin I < 0.01 ng/ml (0.00-0.034)
[2025-02-08 22:10] LABS: Opiate Screen,Urine Negative ng/ml (<300)
[2025-02-08 22:11] LABS: Phencyclidine Screen,Urine Negative ng/ml (<25)
[2025-02-08 22:30] VITALS: BP 136/86; PULSE 80; O2SAT 99
[2025-02-08 23:48] VITALS: BP 144/89; PULSE 78; RESP 17; TEMP 36.6; O2SAT 97
== END 2025-02-08 23:50 | disposition home or self-care (01) ==
PROVIDERS: Emergency Provider Student in an Organized Health Care Education/Training Program; PCP Internal Medicine Adolescent Medicine
DX: R47.81 Slurred speech (principal)
CPT/HCPCS: 70450; 80053; 80307; 80320; 81001; 81025; 82962; 83735; 84484; 84703; 85025; 93005; 99284

== ENCOUNTER 2025-04-21 07:10 | Outpatient (CLI) | payer BC, SELFPAY ==
--- OUTSIDE RECORDS SUMMARY | 2025-04-21 07:13 | XMS_ITS | Patient Health Record ---
Author Organization [facility] Address [address] [place] [address] Care Team Providers Care Press Loader Name Role Phone Edyta Chang Unavailable [phone] Allergies No Known Allergies Reason For Referral [...] Risk Notes Problem Polycystic ovary syndrome (disorder) (549789841) PCOS (polycystic ovarian syndrome) (E28.2) Active confirmed Problem Female infertility (1424466) Infertility (N97.9) Active confirmed Plan Of Treatment No Information Insurance Providers Payer Name Payer Address Payer Phone Subscriber Number Group Number Insured Name Patient Relationship to Insured Coverage Start Date Coverage End Date Inge PPO [address] [place] [address] [id number] Ruddy Leyva Spouse - patient is the spouse of the insured Medical (General) History Medical History History ICD Code PCOS Surgical History Surgery Date(Month/Year) denies
--- OUTSIDE RECORDS SUMMARY | 2025-04-21 07:13 | XMS_ITS | Clinical Summary ---
Author Organization [facility] Address [address] [place] [address] Care Team Providers Care Pulpwood Buyer Name Role Phone Provider, No Known Primary [...] test, as part of routine gynecological exami [facility] 09/26/2020 Immunizations Immunization Administration Dates Next Due [...] = 0.6 oz pur e alcohol) occassional [facility] Utilities Answer Date Recorded In the past [...] and heating? Not hard at all 01/13/2024 [facility] [place] [facility] Occup[facility] ional [facility] - Occupational Stress [...] things needed for daily living? No 01/13/2024 [place] Depression Scale Answer Date Recorded [place] Depression Scale Total 1 02/16/2024 The thought of harming myself has occurred to me . Unrecognized value 02/16/2024 Abuse Screen Answer Date Recorded [...] GED or equivalent No 01/13/2024 Preferred Language Greenlandic 01/13/2024 PHQ-2 Answer Date Recorded Retired PHQ-9: [...] Pelvic an d Breast Exam 09/27/2021 09/26/2020 INFLUENZA VACCINE 12/31/2024 TDAP/TD VACCINES (2 - Td or Tdap) 11/09/2033 024 HEPATITIS C SCREENING Completed 07/07/2023 Pneumococcal Vaccine 0-49 Aged Out No longer eligible based on patient's age to complete this topic Procedures Procedure Name Priority Date/Time Associated Diagnosis Comments OBSTETRIC PANEL Routine 07/07/2023 10:25 AM EST SCANNED - PAP SMEAR 09/26/2020 from Last 3 Months or Most Recently Relevant to Health Maintenance Results * Obstetric Panel (07/07/2023 10:25 AM EST) [...] 10:2 5 AM EST 07/07/2023 Narrative [facility] (AMBULATORY) - 07/08/2023 10:11 AM EST Performed at: [facility] [id number] Lead Tinner: Daquan Cotter PhD, Phone: [phone] Patient Fasting: N us Constantin Bo Forester MD LAB BLOOD ORDERABLES Fin al Result [facility] (AMBULATORY) [address] [place] [address], [place] [phone] [facility] [address] [place] [address], [place] [phone] * SCANNED - PAP SMEAR (09/26/2020) Magen [...] Of Support Discussed With: Patient Care Teams Pulpwood Buyer Relationship Specialty Start Date End Date Provider, [place] [address] PCP - General 09/25/20
== END 2025-04-21 23:59 | disposition home or self-care (01) ==
LOC: LAB 07:11
PROVIDERS: PCP Internal Medicine Adolescent Medicine; Visit Provider Obstetrics & Gynecology Reproductive Endocrinology
DX: Z32.01 Encounter for pregnancy test, result positive (principal)
CPT/HCPCS: 36415; 84702